=== PATIENT | male | born 1970 | race Caucasian/White ===

== ENCOUNTER → 2017-09-22 | Outpatient (CLI) | payer OTHER ==
--- NOTE | 2017-09-22 13:21 | CT ---
EXAMINATION TYPE: CT facial bones w con DATE OF EXAM: 09/22/2017 COMPARISON: NONE HISTORY: 46 year-old male right eyelid bony mass TECHNIQUE: Contiguous axial scanning of the facial bones performed with IV Contrast, patient injected with 100 mL of Isovue 300. Coronal reconstructions performed. CT DLP: 657 mGycm Automated exposure control for dose reduction was used. FINDINGS: Visualized intracranial structures show no gross abnormality. Mastoid air cells are clear. Cerumen wi thin the left external auditory canal. Paranasal sinuses are well pneumatized. The globes appear symmetrical and intact. The lacrimal glands appear symmetrical. No retrobulbar intr aorbital abnormality is seen. The extraosseous muscles appear symmetrical and normal. No significant preseptal soft tissue swelling identified when comparing side to side. Slight leftward nasal septal deviation. IMPRESSION: NO SIGNIFICANT PRESEPTAL OR POSTSEPTAL ABNORMALITY IDENTIFIED ON EITHER SIDE. NO SUSPICIOUS CALCIFICA TIONS SEEN BY CT.
== END | disposition home or self-care (01) ==
LOC: RADCTMAIN 12:37
PROVIDERS: ATTEND Otolaryngology
DX: H02.9 Unspecified disorder of eyelid (principal); Z87.09 Personal history of other diseases of the respiratory system
CPT/HCPCS: 70487; Q9967

== ENCOUNTER 2018-05-07 08:55 | Day surgery (SDC) | payer OTHER ==
[2018-05-02 13:34] VITALS: BMI 32.1
[~2018-05-07 08:55] MED LIST: LACTATED RINGERS 1,000 ML IV SCH
[2018-05-07 10:26] VITALS: TEMP 97.8
[2018-05-07] MEDS ORDERED: LIDOCAINE 1% 20 ML VIAL (10MG/ML) FOR IV START INTRADERMA ONE (10:30)
[2018-05-07] MEDS ORDERED: LIDOCAINE 1% INJ 10MG/ML (20 ML MDV) ONE (11:42)
[2018-05-07] MEDS ORDERED: PROPOFOL 10 MG/ML 20 ML VIAL IV ONE (11:42)
[2018-05-07 12:06] VITALS: RESP 14
[2018-05-07 12:32] VITALS: BP 130/87; PULSE 68
--- NOTE | 2018-05-07 12:40 | P.PCN ---
Date of Procedure: 05/07/18 Procedure(s) Performed: Procedure: Colonoscopy and biopsy. Preoperative diagnosis: Screening for neoplasia, patient has history of polyps. Postoperative diagnosis: 1. Diminutive polyp in the rectum biopsied but no large polyps or cancer. 2. Biopsies obtained from the terminal ileum and right colon because of his history of ankylosing spondylitis. 3. Low-grade internal hemorrhoids not bleeding at the time of this exam. Preparation: HalfLytely prep. Sedation: Was provided by anesthesia. Brief clinical history: The patient is a 47-year-old male who is scheduled for this evaluation because of history of polyps. His last exam was around 5 or 7 years ago. The patient has history of sarcoidosis and ankylosing spondylitis and is going to be started on humira. This evaluation was requested to rule out with confidence inflammatory bowel disease or neoplasia. He has intermittent rectal bleeding. Procedure: With the patient on his left lateral decubitus position and after informed consent and adequate sedation, the perianal area was inspected and it did not show any fissures or fistulas. There were no masses felt on digital rectal examination. The Olympus CFH 190L was inserted in the rectum and the usual fashion and advanced to the cecum. I was not able to intubate the ileocecal valve and examine the terminal ileum, however, I was able to obtain a blind biopsie from the terminal ileum and also obtained biopsies from the right colon. The mucosa appeared healthy. There was a diminutive polyp in the rectum which I biopsied but there were no large polyps or cancer. No obvious diverticular disease or other pathology. I retroflexed the endoscope in the rectum before the endoscope was withdrawn. Low-grade internal hemorrhoids were noted with no evidence of bleeding. The patient tolerated the procedure well. And: The patient was reassured. Discussed dietary measures and local care for hemorrhoids. Will await biopsy results and make further plans. I anticipate repeating his colonoscopy in 5 years. He will follow up with you as planned.
--- NOTE | 2018-05-09 11:23 | CDI ---
Outpatient Documentation Clarification Form Date: 05/09/18 CDS/Art Objects Repairer Name: Kassy Ansari Phone: If any questions, call Genet Garcia [employer] Supervisor at [phone] Patient Name: Joselito Mack Admit Date: 05/07/18 Discharge Date: 05/07/18 ATTENTION: The [facility] Coding Staff appreciate your assistance in clarifying documentation. Please respond to the clarification below the line at the bottom and electronically sign. The [facility] Coding staff will review the response and follow-up if needed. Please note: Queries are made part of the Legal Health Record. If you have any questions, please contact the [employer] Supervisor. Dear Dr. Murguia, What is the cause of the rectal bleeding? Our coding resources state that when rectal bleeding is documented along with internal and/or external hemorrhoids, the physician must be queried to determine whether the rectal bleeding is secondary to the hemorrhoids, or incidental. Thank you for your kind consideration. UNknown MTDD
== END 2018-05-07 12:45 | disposition home or self-care (01) ==
LOC: MERGE 08:55 → ORWHC2ENDO 08:55
DX: K62.1 Rectal polyp (principal); M45.9 Ankylosing spondylitis of unspecified sites in spine; D86.9 Sarcoidosis, unspecified; K64.8 Other hemorrhoids; Z86.010 Personal history of colon polyps; Z79.1 Long term (current) use of non-steroidal anti-inflammatories (NSAID)
CPT/HCPCS: 88305; 45380; J2001; J2704

== ENCOUNTER → 2018-05-07 | Outpatient (CLI) | payer OTHER ==
--- NOTE | 2018-05-07 12:20 | XR ---
EXAMINATION TYPE: XR chest 2V DATE OF EXAM: 05/07/2018 COMPARISON: 11/05/2008 HISTORY: 47-year-old male with cough TECHNIQUE: Frontal and lateral views FINDINGS: Heart normal size. Aorta and pulmonary vasculature within normal limits. Some minimal strandy atelect asis or scarring at the peripheral left upper to midlung. No consolidation or pleural effusion. IMPRESSION: No acute process seen.
== END ==
LOC: RADXRMAIN 08:36
PROVIDERS: ATTEND Internal Medicine Rheumatology
DX: R05 Cough (principal)
CPT/HCPCS: 71046

== ENCOUNTER → 2019-06-06 | Outpatient (CLI) | payer OTHER ==
--- NOTE | 2019-06-06 13:00 | ECHOF ---
Referral Reason:Shortness of breath MEASUREMENTS -------- HEIGHT: 182.9 cm WEIGHT: 120.2 kg BP: RVIDd: 2.9 cm (< 3.3) IVSd: 1.3 cm (0.6 - 1.1) LVIDd: 5.2 cm (3.9 - 5.3) LVPWd: 1.3 cm (0.6 - 1.1) IVSs: 1.3 cm LVIDs: 4.0 cm LVPWs: 1.5 cm LA Diam: 3.1 cm (2.7 - 3.8) Ao Diam: 3.2 cm (2.0 - 3.7) AV Cusp: 2.1 cm (1.5 - 2.6) LA Diam: 3.9 cm (2.7 - 3.8) MV EXCURSION: 21.866 mm (> 18.000) MV EF SLOPE: 127 mm/s (70 - 150) EPSS: 0.3 cm MV E Jan: 0.48 m/s MV DecT: 230 ms MV A Jan: 0.54 m/s MV E/A Ratio: 0.89 RAP: 5.00 mmHg RVSP: 16.30 mmHg FINDINGS -------- Sinus rhythm. This was a technically adequate study. The left ventricular size is normal. There is mild concentric left ventricular hypertrophy. Overa ll left ventricular systolic function is normal with, an EF between 55 - 60 %. The diastolic fillin g pattern is normal for the age of the patient 4.81. The right ventricle is normal in size. The left atrial size is normal. The right atrial size is normal. Valsalva maneuver done: Per DR's Order. The aortic valve is trileaflet, and appears structurally normal. No aortic stenosis or regurgitation. Mild mitral regurgitation is present. Mild tricuspid regurgitation present. Right ventricular systolic pressure is normal at < 35 mmHg. There is no evidence of pulmonary hypertension. There is no pulmonic regurgitation present. The aortic root size is normal. Echo free space represents a pericardial fat pad. CONCLUSIONS -------- 1. Sinus rhythm. 2. This was a technically adequate study. 3. The left ventricular size is normal. 4. There is mild concentric left ventricular hypertrophy. 5. Overall left ventricular systolic function is normal with, an EF between 55 - 60 %. 6. The diastolic filling pattern is normal for the age of the patient 4.81 7. The right ventricle is normal in size. 8. The left atrial size is normal. 9. The right atrial size is normal. 10. Valsalva maneuver done: Per DR's Order. 11. The aortic valve is trileaflet, and appears structurally normal. No aortic stenosis or regurgitat ion. 12. Mild mitral regurgitation is present. 13. Mild tricuspid regurgitation present. 14. Right ventricular systolic pressure is normal at < 35 mmHg. 15. There is no evidence of pulmonary hypertension. 16. There is no pulmonic regurgitation present. 17. The aortic root size is normal. 18. Echo free space represents a pericardial fat pad. CLEANER WINDOW: Karli Jeronimo RDCS
== END | disposition home or self-care (01) ==
LOC: RADECHMAIN 08:02
PROVIDERS: ATTEND Internal Medicine Rheumatology
DX: I08.1 Rheumatic disorders of both mitral and tricuspid valves (principal)
CPT/HCPCS: 93306

== ENCOUNTER 2021-08-10 09:10 | Day surgery (SDC) | payer OTHER ==
[2021-08-05 15:21] VITALS: BMI 37.5
[~2021-08-10 09:10] MED LIST changes: +LIDOCAINE 1% (10MG/ML) FOR IV START INTRADERMA PRN
[2021-08-10 09:38] VITALS: TEMP 97.3
[2021-08-10] MEDS ORDERED: fentaNYL (PF) 50 MCG/ML 2 ML AMP ONE (09:46)
[2021-08-10] MEDS ORDERED: PROPOFOL 10 MG/ML 20 ML VIAL IV ONE (09:46)
[2021-08-10] MEDS ORDERED: MIDAZOLAM 2 MG/2 ML VIAL ONE (09:46)
[2021-08-10 10:11] VITALS: RESP 16
[2021-08-10 10:30] VITALS: BP 120/77; PULSE 70
--- NOTE | 2021-08-10 10:32 | P.PCN ---
Date of Procedure: 08/10/21 Procedure(s) Performed: BRIEF HISTORY: Patient is a 50-year-old pleasant white male scheduled for an elective colonoscopy as a part of prior history of colon polyps and family history of colon cancer. Father was diagnosed with colon cancer at age 70. PROCEDURE PERFORMED: Colonoscopy with the snare polypectomy. PREOPERATIVE DIAGNOSIS: History of colon polyps and family history of colon. IV sedation per Anesthesia. PROCEDURE: After informed consent was obtained, the patient, was brought into the endoscopy unit. IV sedation was administered by Anesthesia under continuous monitoring. Digital rectal examination was normal. Initially the Olympus CF-160 flexible video colonoscope was then inserted in the rectum, gradually advanced into the cecum without any difficulty. Careful examination was performed as the scope was gradually being withdrawn. Ileocecal valve and the appendiceal orifice were visualized and appeared normal. Prep was excellent. Mucosa of the cecum, ascending colon, appeared normal. The distal transverse colon there was a 1 cm broad-based polyp removed by snare polypectomy. There was a 5 mm polyp noted in the descending colon that was removed by snare polypectomy. Rest of the transverse colon, descending colon, sigmoid colon, and rectum appeared normal. In the distal rectum there was a 3 mm polyp removed by snare polypectomy. Retroflexion was performed in the rectum and no lesions were seen. The patient tolerated the procedure well. IMPRESSION: 1 cm distal transverse colon polyp status post polypectomy 5 mm descending colon polyp status post polypectomy 3 mm sessile rectal polyp status post polypectomy RECOMMENDATIONS: Findings of this examination were discussed with the patient as well as his family.. He was advised to follow with the biopsy results. If the biopsy reveals adenoma, he can have a repeat colonoscopy in 5 years
== END 2021-08-10 10:41 | disposition home or self-care (01) ==
LOC: ORWHC2ENDO 09:10
PROVIDERS: ATTEND Internal Medicine Gastroenterology
DX: Z12.11 Encounter for screening for malignant neoplasm of colon (principal); D12.3 Benign neoplasm of transverse colon; K62.1 Rectal polyp; Z86.010 Personal history of colon polyps; Z80.0 Family history of malignant neoplasm of digestive organs; M45.9 Ankylosing spondylitis of unspecified sites in spine; D86.9 Sarcoidosis, unspecified; F41.9 Anxiety disorder, unspecified; K21.9 Gastro-esophageal reflux disease without esophagitis; Z79.1 Long term (current) use of non-steroidal anti-inflammatories (NSAID); Z79.899 Other long term (current) drug therapy
CPT/HCPCS: 88305; 45385; J2250; J3010; J2704

== ENCOUNTER → 2022-07-12 | Outpatient (CLI) | payer OTHER | END | disposition home or self-care (01) | LOC: RADNMMAIN 08:31 | PROVIDERS: ATTEND Family Medicine | DX: Z53.9 Procedure and treatment not carried out, unspecified reason (principal) ==

== ENCOUNTER → 2023-09-29 | Outpatient (CLI) | payer OTHER ==
--- NOTE | 2023-09-30 09:11 | MR ---
EXAMINATION TYPE: MR Prostate wo/w con DATE OF EXAM: 09/29/2023 8:42 AM COMPARISON: None. CLINICAL INDICATION:Male, 52 years old with history of C61.0 PROSTATE CA; Prostate cancer. TECHNIQUE: Multi-planar, multi-sequence imaging of the pelvis is performed prior to and following the uncomplicated administration of bolus intravenous gadolinium. CONTRAST: 11.5 Gadavist Interpretive Criteria: PI-RADS v2.1 SERUM PSA: 8.06 on 06/26/2023. SURGICAL PATHOLOGY: Positive biopsy results 08/01/2022 involving the right lateral mid, left lateral b ase, left lateral mid Max Norwood score 6. FINDINGS: Prostatic dimensions: 5.6 x 5.7 x 4.1 cm. Ellipsoid Volume:60.11 (PSA density=0.13 ng/mL/mL) CENTRAL GLAND (Central and Transition Zones/CZ+TZ): Multiple bilateral, heterogenous appearing hypertrophic stromal nodules, without suspicious lesion. M edian lobe hypertrophy with protrusion into the base of the bladder. (PI-RADS 2) PERIPHERAL ZONE (PZ): Anterior peripheral zone of the mid gland with increased DWI and low ADC signal measuring 13 x 7 mm ( PI-RADS 4) . No increased vascularity. SEMINAL VESICLES (SV): Symmetric and unremarkable. PERIPROSTATIC TISSUES: Unremarkable. LYMPH NODES: No enlarged pelvic lymph node. REMAINING PELVIS: Bladder wall is within normal limits given distention. No abnormal free or organized intrapelvic fluid collection. No pathologic bowel dilation or mural thickening. Right fat containing inguinal hernia OSSEOUS STRUCTURES: No suspicious osseous abnormality. IMPRESSION: 1. PI-RADS 4 lesion in the anterior peripheral zone just right of midline. While this could represen t an extruded BPH nodule tissue sampling recommended to exclude underlying clinically significant pro state adenocarcinoma. 2. Moderate BPH, estimated gland volume 60.11 mL. 3. No suspicious osseous lesion. No lymphadenopathy. No evidence of prostate adenocarcinoma involving the periprostatic tissues.
== END | disposition home or self-care (01) ==
LOC: RADMRIMAIN 07:30
PROVIDERS: ATTEND Urology
DX: N40.0 Benign prostatic hyperplasia without lower urinary tract symptoms (principal); C61 Malignant neoplasm of prostate
CPT/HCPCS: 72197; A9585